=== PATIENT | female | born 1970 | race Two or more races ===

== ENCOUNTER → 2024-12-28 08:25 | Outpatient (CLI) | payer OTHER ==
[~2024-12-28 08:25] MED LIST: CIPRO500 MG PO; ENBREL50 MG/1 M2; RELAFEN DS1000 MG
[2024-12-28 09:26] VITALS: BP 160/97
[2024-12-28 09:36] LABS: BASO % 0.6 % (0.1-1.2); EOS # 0.23 (0.04-0.54); EOS % 2.7 % (0.7-7.0); HEMATOCRIT 39.5 % (34.1-44.9); HEMOGLOBIN 12.6 g/dL (11.2-15.7); LYMPH # 2.03 (1.18-3.74); LYMPH % 24.1 % (19.3-53.1); MEAN CORPUSCULAR HEMOGLOBIN 25.9 pg (25.6-32.2); MONO # 0.62 (0.24-0.82); MONO % 7.3 % (4.7-12.5); NEUT # 5.48 (1.56-6.13); NEUT % 64.9 % (34.0-71.1); PLATELET COUNT 399 K/uL (163-369); RED BLOOD COUNT 4.86 M/uL (3.93-5.22); RED CELL DISTRIBUTION WIDTH 14.7 % (11.6-14.4)
[2024-12-28 09:49] LABS: URINE APPEARANCE Clear; URINE BILIRRUBIN Negative (NEGATIVE); URINE BLOOD Negative; URINE COLOR Yellow; URINE GLUCOSE Negative (NEGATIVE); URINE KETONE Negative (NEGATIVE); URINE LEUKOCYTE Trace; URINE NITRATE Negative; URINE PROTEIN Negative (NEGATIVE)
[2024-12-28 09:54] LABS: URINE BACTERIA 256.9 uL (0.0-1933); URINE EPITHELIAL CELLS 31.6 uL (0.0-38.8); URINE RBC 5.5 uL (0.0-20.8); URINE WBC 7.5 uL (0.0-23.2)
[2024-12-28 10:08] LABS: URINE CAST 0.29 uL (0.0-1.40)
[2024-12-28 10:14] LABS: INR 0.94; PARTIAL THROMBOPLASTIN TIME 28.2 SECONDS (22.0-34.0); PROTHROMBIN TIME 10.3 SECONDS (9.0-11.5)
[2024-12-28 10:22] LABS: COL EPI 170 SECONDS (82-175)
[2024-12-28 10:43] LABS: ALBUMIN 4.1 gm/dL (3.4-5.0); BILIRUBIN TOTAL 0.39 mg/dL (0.3-1.2); CALCIUM 9.6 mg/dL (8.5-10.1); CREATININE SERUM 0.74 mg/dL (0.55-1.02); GFR 82.09; GLOBULINA 4.2 G/DL (2.4-3.5); POTASSIUM 4.02 mEq/L (3.5-5.1); TOTAL PROTEIN 8.3 gm/dL (6.4-8.2)
== END | disposition home or self-care (01) ==
LOC: RAD 08:25
PROVIDERS: ATTEND Orthopaedic Surgery
DX: I10 Essential (primary) hypertension (principal); Z76.89 Persons encountering health services in other specified circumstances; D64.9 Anemia, unspecified; E88.9 Metabolic disorder, unspecified; D68.8 Other specified coagulation defects; N39.0 Urinary tract infection, site not specified; E11.8 Type 2 diabetes mellitus with unspecified complications; Z22.322 Carrier or suspected carrier of Methicillin resistant Staphylococcus aureus

== ENCOUNTER 2025-01-06 12:30 | Inpatient (IN) | payer OTHER ==
[~2025-01-06] VITALS: Ht 160 cm; Wt 86.2 kg
[2025-01-11] MEDS ORDERED: CEFOXITIN SODIUM 2,000 MG VIAL IV ONE (09:09)
[2025-01-11] MEDS ORDERED: TRANEXAMIC ACID 100MG/1ML (1000MG) AMPUL IV ONE (09:25)
[2025-01-11] MEDS ORDERED: VANCOMYCIN HCL 1,000 MG VIAL ONE (09:28)
[2025-01-11] MEDS ORDERED: LIDOCAINE HCL 1%/EPINEPHRINE 20ML VIAL IJ ONE (09:28)
[2025-01-11] MEDS ORDERED: KETOROLAC TROMETHAMINE 60 MG VIAL IM ONE (09:28)
[2025-01-11] MEDS ORDERED: MORPHINE SULFATE 4 MG/ML CARTRIDGE IV ONE (15:00)
[2025-01-11] MEDS ORDERED: TRAMADOL HCL 50 MG TABLET PO PRN (15:45)
[2025-01-11] MEDS ORDERED: ONDANSETRON HCL 2 MG/ML VIAL IV PRN (15:45)
[2025-01-11] MEDS ORDERED: SODIUM CHLORIDE 0.45 % 1,000 ML IV SCH (15:45)
[2025-01-11] MEDS ORDERED: MEPERIDINE HCL/PF 50 MG/ML VIAL IM PRN (15:45)
[2025-01-11] MEDS ORDERED: PROMETHAZINE HCL 50 MG/ML AMPUL IM PRN (15:45)
[2025-01-11] MEDS ORDERED: ONDANSETRON 4 MG TAB.RAPDIS PO PRN (15:45)
[2025-01-11] MEDS ORDERED: CELECOXIB 200 MG CAPSULE PO SCH (17:00)
[2025-01-11] MEDS ORDERED: CEFAZOLIN SODIUM 1,000 MG VIAL IV SCH (17:00)
[2025-01-11] MEDS ORDERED: ACETAMINOPHEN 325 MG TABLET PO SCH (17:00)
[2025-01-11] MEDS ORDERED: KETOROLAC TROMETHAMINE 10 MG TABLET PO SCH (21:00)
[2025-01-11 22:45] VITALS: BP 135/80
[2025-01-12 05:00] VITALS: BP 93/67
[2025-01-12 06:48] LABS: BASO % 0.3 % (0.1-1.2); EOS # 0.13 (0.04-0.54); EOS % 1.4 % (0.7-7.0); HEMATOCRIT 27.6 % (34.1-44.9); LYMPH # 1.55 (1.18-3.74); LYMPH % 17.1 % (19.3-53.1); MEAN CORPUSCULAR HEMOGLOBIN 26.3 pg (25.6-32.2); MONO # 0.85 (0.24-0.82); MONO % 9.4 % (4.7-12.5); NEUT # 6.46 (1.56-6.13); NEUT % 71.6 % (34.0-71.1); PLATELET COUNT 285 K/uL (163-369); RED BLOOD COUNT 3.34 M/uL (3.93-5.22); RED CELL DISTRIBUTION WIDTH 14.7 % (11.6-14.4)
[2025-01-12 06:59] LABS: HEMOGLOBIN 8.8 g/dL (11.2-15.7)
[2025-01-12 08:29] VITALS: BP 137/76
[2025-01-12] MEDS ORDERED: RIVAROXABAN 10 MG TAB PO SCH (09:00)
[2025-01-12] MEDS ORDERED: PANTOPRAZOLE SODIUM 40 MG TABLET.DR PO SCH (09:00)
[2025-01-12 16:29] VITALS: BP 139/79
[2025-01-13] VITALS: BP 143/72
[2025-01-13 07:11] LABS: BASO % 0.4 % (0.1-1.2); EOS # 0.19 (0.04-0.54); EOS % 2.1 % (0.7-7.0); LYMPH # 1.56 (1.18-3.74); LYMPH % 16.9 % (19.3-53.1); MEAN CORPUSCULAR HEMOGLOBIN 25.9 pg (25.6-32.2); MONO # 0.93 (0.24-0.82); MONO % 10.1 % (4.7-12.5); NEUT # 6.48 (1.56-6.13); NEUT % 70.3 % (34.0-71.1); PLATELET COUNT 284 K/uL (163-369); RED CELL DISTRIBUTION WIDTH 14.3 % (11.6-14.4)
[2025-01-13 07:19] LABS: HEMATOCRIT 25.5 % (34.1-44.9); HEMOGLOBIN 8.3 g/dL (11.2-15.7)
[2025-01-13 08:04] VITALS: BP 150/80
[2025-01-13] MEDS ORDERED: SENNA/DOCUSATE SODIUM 1 TAB TABLET PO SCH (09:00)
[2025-01-13 17:05] VITALS: BP 129/86
[2025-01-14 01:00] VITALS: BP 98/62
[2025-01-14 08:45] VITALS: BP 132/78; O2SAT 98
== END 2025-01-14 11:46 | disposition home or self-care (01) | DRG 470 ==
LOC: CIR.AMB 01-11 07:00 → EDSTATUS 01-11 07:00 → SURH 01-11 07:00 → O/R 01-11 08:45 → CIR.AMB 01-11 12:30 → OB/GYN 01-11 20:48
PROVIDERS: ADMIT Orthopaedic Surgery; ATTEND Orthopaedic Surgery
PROC: 0SRC0J9 Replacement of Right Knee Joint with Synthetic Substitute, Cemented, Open Approach (ICD-10-PCS; principal; 2025-01-11 07:00)
DX: M17.11 Unilateral primary osteoarthritis, right knee (principal)

== ENCOUNTER 2025-01-19 12:56 | Outpatient (CLI) | payer OTHER | END 2025-01-19 12:57 | disposition home or self-care (01) | LOC: NUCLEAR 12:56 | PROVIDERS: ATTEND Orthopaedic Surgery | DX: M79.604 Pain in right leg (principal); Z96.651 Presence of right artificial knee joint ==